=== PATIENT | female | born 1935 | race Caucasian/White ===

== ENCOUNTER 2016-06-06 22:52 | Inpatient (IN) | payer OTHER ==
--- NOTE | ~2016-06-06 | HP ---
History And Physical [id number] [place]. [address] NAME: NORMAN LOW : 37 STATUS : ADM IN PAT#: [id number] AGE: 80 ADM/REG DATE : 06/07/16 MR#: [id number] REPORT SERV DATE: 06/07/16 DICTATED BY: KASSANDRA BOWEN DATE: 06/07/16 REPORT STATUS : Draft TRANSCRIBED BY: MODL DATE: 06/07/16 DATE OF ADMISSION: 06/07/2016 CHIEF COMPLAINT: Chest pain. HPI: A 80-year-old woman followed by Dr. Raygoza and known to me from prior care, has unspecified PCI in 1993 and 2-vessel CABG in approximately that time frame, 01/08 obtuse marginal vessel 3.0 x 18 Cypher stent, and 08/16 catheterization demonstrating occluded LAD with patent ASHLEIGH graft to diagonal and patent EISENBERG graft to LAD, patent circumflex stent into first obtuse marginal vessel with distal edge 30% to 40% stenosis and occluded distal circumflex. 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 The patient's cardiovascular history is further remarkable for hypercholesteremia, hypertension, hypothyroidism, and pulmonary hypertension. For the last several weeks, the patient has had episodic, epigastric, and retrosternal chest pain which she says "builds." The pain radiates to shoulders and was associated with shortness of breath but not nausea, vomiting or diaphoresis. Yesterday evening, she had a particularly severe episode which prompted presentation to the [facility] Emergency Room. EKG did not demonstrate injury current but troponin-I was minimally elevated. She has been treated in routine fashion for acute coronary syndrome and has been pain-free since presentation. PAST MEDICAL HISTORY: 1. CAD-surgical and percutaneous revascularizations as defined above. 2. Hypercholesteremia-not treated. 3. Hypertension-not treated. 4. Hypothyroidism noted. 5. Pulmonary hypertension-last echo 11/16 with normal pulmonary artery pressures. HOME MEDICATIONS: Aspirin 81 mg daily, levothyroxine 25 mcg daily, multivitamins, tocopherol, and cyanocobalamin. SOCIAL HISTORY: The patient is not . She does not smoke. She does not drink alcohol. FAMILY HISTORY: Noncontributory. REVIEW OF SYSTEMS: Unremarkable. PHYSICAL EXAMINATION: GENERAL: No acute distress. VITAL SIGNS: 140/82, respirations 14, temperature 96.4, pulse 84 and regular. NECK: No JVD. No carotid bruits. History And Physical [address] [place]. [address] NAME: NORMAN LOW : 37 STATUS : ADM IN PAT#: [id number] AGE: 80 ADM/REG DATE : 06/07/16 MR#: [id number] REPORT SERV DATE: 06/07/16 DICTATED BY: KASSANDRA BOWEN DATE: 06/07/16 REPORT STATUS : Draft TRANSCRIBED BY: MODL DATE: 06/07/16 LUNGS: Clear to auscultation and percussion. CARDIAC: I/ systolic murmur, no diastolic murmur. ABDOMEN: Benign. EXTREMITIES: Warm without edema. LABORATORY DATA: BUN and creatinine 20 and 0.81 yielding EGFR 81. White blood cell count 4900, hematocrit 38.6%, platelet count 248,000. EKG, sinus rhythm at a rate of 86, normal axis and intervals, normal EKG. Troponin-I 0.15. ASSESSMENT AND PLAN: 1. Chest pain-known coronary artery disease and symptoms compatible with angina. I have started aspirin and Brilinta load in continuation. Started IV heparin per protocol. Obtain myocardial perfusion scan today with borderline troponin. 2. Coronary artery disease-status post CABG and PCI as defined above. 3. Hypercholesteremia-not treated. Starting Lipitor 40 mg daily for plaque stabilization. 4. Hypertension-borderline. Continue current therapy. /MODL Kassandra Bowen M.D. / [id number] CC: Kristy Ramos M.D.
[~2016-06-06 22:52] MED LIST: ALTA2.5 PO; ASAB PO; BRILINTA; BRILINTA90 MG PO; CALCIUM PO; COD LIVER PO; CRESTOR40 MG PO; EFFEXOR XR150 MG PO; EFFEXOR50 MG PO; EYE VITAMIN PO; FOLIC PO; KLONO1 PO; L-LYSINE1000 M1 OR; LEVOTHYROXIN112 MCG PO; LIPITOR80 MG PO; LOP25 PO; LORT7 PO; LORTAB10 PO; MEGA MULTI OR; MULTIPLE VIT PO; NORCO1 TA2 PO; SYN112 PO; VITAMIN B PO; VITAMIN C100 MG PO; VITAMIN D PO; ZETIA PO; [UNRECOGNIZED DRUG - OTHER]; [UNRECOGNIZED DRUG - OTHER]
[2016-06-06 23:21] LABS: BASOPHILS 0.6 %; BASOPHILS ABSOLUTE 0.03 10/3/uL (0.0-0.16); EOSINOPHILS 3.1 %; EOSINOPHILS ABSOLUTE 0.15 10/3/uL (0.0-0.53); HEMATOCRIT 38.6 % (36.0-48.0); HEMOGLOBIN 13.1 g/dL (12.0-16.0); IMMATURE GRANULOCYTES 0.2 %; IMMATURE GRANULOCYTES ABSOLUTE 0.01 10/3/uL (0.0-0.11); LYMPHOCYTES 44.9 %; MEAN CORPUS HGB CONC 33.9 g/dL (32.0-36.0); MEAN CORPUSCULAR VOLUME 94.1 fL (80-100); MEAN PLATELET VOLUME 10.3 fL (9.2-13.0); MONOCYTES 9.2 %; MONOCYTES ABSOLUTE 0.45 10/3/uL (0.21-1.20); NEUTROPHILS ABSOLUTE 2.06 10/3/uL (2.02-8.40); PLATELET COUNT 248 10/3/uL (150-400); RBC DISTRIBUTION WIDTH 12.4 % (12.0-16.0); WHITE BLOOD CELLS 4.9 10/3/uL (4.5-10.5)
[2016-06-06 23:22] LABS: MANUAL DIFF NO %
[2016-06-06 23:31] LABS: INTERNATIONAL NORMAL RATI 1.1 UNITS (-); PARTIAL THROMBO TIME 28.7 SEC (22.5-37.2); PROTIME (NOT ORD) 13.8 SEC (12.0-14.5)
[2016-06-06 23:39] LABS: CALCIUM, SERUM 8.6 MG/DL (8.5-10.4); CHLORIDE, SERUM 108 MMOL/L (96-112); CO2 (CARBON DIOXIDE) 27 MMOL/L (24-34); CREATININE 0.81 MG/DL (0.55-1.02); GFR AFRICAN AMERICAN 81 ML/MIN (>=60); GFR NON AFRICAN AMERICAN 70 ML/MIN (>=60); GLUCOSE, SERUM 107 MG/DL (60-99); SODIUM, SERUM 142 MMOL/L (135-148)
[2016-06-06 23:40] LABS: BUN (BLOOD UREA NITROGEN) 20 MG/DL (6-23)
[2016-06-06 23:41] LABS: CHEST PAIN PROFILE TAT 0 Hrs 24 Mins; TROPONIN I 0.15 NG/ML (<0.05)
[2016-06-07] MEDS ORDERED: MULTIVIT/MIN PO (00:15)
[2016-06-07] MEDS ORDERED: CYANO1000T PO (00:15)
[2016-06-07] MEDS ORDERED: ASAB PO (00:15)
[2016-06-07] MEDS ORDERED: VITE1000 PO (00:15)
[2016-06-07] MEDS ORDERED: SYN125 PO (00:15)
[2016-06-08 06:36] LABS: BASOPHILS 0.6 %; BASOPHILS ABSOLUTE 0.03 10/3/uL (0.0-0.16); EOSINOPHILS 5.7 %; EOSINOPHILS ABSOLUTE 0.27 10/3/uL (0.0-0.53); HEMATOCRIT 36.9 % (36.0-48.0); HEMOGLOBIN 12.7 g/dL (12.0-16.0); IMMATURE GRANULOCYTES 0.2 %; IMMATURE GRANULOCYTES ABSOLUTE 0.01 10/3/uL (0.0-0.11); LYMPHOCYTES 37.1 %; LYMPHOCYTES ABSOLUTE 1.75 10/3/uL (0.67-4.30); MEAN CORPUS HGB CONC 34.4 g/dL (32.0-36.0); MEAN CORPUSCULAR HEMOGLOB 32.7 pg (26.0-34.0); MEAN CORPUSCULAR VOLUME 95.1 fL (80-100); MEAN PLATELET VOLUME 9.8 fL (9.2-13.0); MONOCYTES 8.7 %; MONOCYTES ABSOLUTE 0.41 10/3/uL (0.21-1.20); NEUTROPHILS 47.7 %; NEUTROPHILS ABSOLUTE 2.25 10/3/uL (2.02-8.40); PLATELET COUNT 223 10/3/uL (150-400); RBC DISTRIBUTION WIDTH 12.4 % (12.0-16.0); RED CELL COUNT 3.88 10/6/uL (4.0-5.6); WHITE BLOOD CELLS 4.7 10/3/uL (4.5-10.5)
[2016-06-08 06:37] LABS: MANUAL DIFF NO %
[2016-06-08 06:53] LABS: CHOL/HDL RATIO(NOT ORDER) 3.2 (0-5)
[2016-06-08] MEDS ORDERED: PRIN10 PO (12:56)
[2016-06-08] MEDS ORDERED: LIPITOR10 PO (12:56)
[2016-08-03] MEDS ORDERED: PAXIL40 MG PO (06:42)
[2016-08-03] MEDS ORDERED: *UNABLE1 (06:43)
== END 2016-06-08 14:01 | disposition home or self-care (01) | DRG 303 ==
LOC: ER 22:52 → 5NO 06-07 00:53
PROVIDERS: Emergency Medicine; Specialist
DX: I25.119 Atherosclerotic heart disease of native coronary artery with unspecified angina pectoris (principal); I10 Essential (primary) hypertension; Z95.1 Presence of aortocoronary bypass graft; E03.9 Hypothyroidism, unspecified; Z95.5 Presence of coronary angioplasty implant and graft; Z79.82 Long term (current) use of aspirin
CPT/HCPCS: 71010; 78452; 80048; 80061; 83735; 84460; 84484; 85025; 85610; 85730; 93005; 93017; 99285; A9270-GY; A9502; J2785

== ENCOUNTER 2016-06-13 10:42 | Inpatient (IN) | payer OTHER ==
--- NOTE | ~2016-06-13 | OP ---
Record Of Operation [facility] [address] [place]. [address] NAME: NORMAN LOW : 37 STATUS : ADM IN PAT#: [id number] AGE: 80 ADM/REG DATE : 06/13/16 MR#: [id number] REPORT SERV DATE: 06/13/16 DICTATED BY: KASSANDRA BOWEN DATE: 06/13/16 REPORT STATUS : Draft TRANSCRIBED BY: MODL DATE: 06/13/16 DATE OF PROCEDURE: 06/13/2016 PROCEDURE: Emergent left heart catheterization, coronary angiography, right internal mammary artery graft angiography, left internal mammary artery graft angiography, balloon angioplasty followed by deployment of 3.5 x 16 Synergy stent in mid right coronary artery, nominally attempted angioplasty of occluded circumflex artery (in-stent). INDICATIONS: STEMI. DIRECTOR OF REGIONAL SALES: Kassandra Bowen M.D., [facility] [place], [facility]. PROCEDURE NOTE: The patient brought emergently to cardiac catheterization laboratory. Routine sterile prep and drape performed. Monitored sedation administered. 2% Xylocaine with epinephrine infiltrated to right groin. A 6-Serbian sheath to right femoral artery following anterior wall puncture. A 6-Serbian JR4 diagnostic catheter provided adequate engagement of right coronary artery with angiography of this vessel performed, demonstrating critical mid right vessel lesion. JR4 catheter redirected into left subclavian artery and engaged ostium of left internal mammary artery graft with angiography of this vessel performed. JR4 catheter redirected into right subclavian artery and sprayed the ostium of the right internal mammary artery graft with angiography of this vessel performed. Catheter exchanged for 6-Serbian JL-4 diagnostic catheter, which engaged the ostium of left main coronary artery adequately and left coronary aortography performed. Having identified critical stenosis in the mid right coronary artery, which jeopardized collateral filling to the circumflex territory, the decision to perform angioplasty was made. Heparin had been administered prior to arriving in the catheterization laboratory. An ACT was confirmed in the vicinity of 190 seconds during the procedure. Aspirin and Brilinta had been administered. A 6-Serbian JR4 guiding catheter provided adequate engagement of right coronary artery. Exchange length Maimai soft wire advanced through 2.5 x 15 Emerge balloon catheter. Guidewire through mid right coronary lesion without difficulty. Balloon catheter delivered to lesion without difficulty. They were inflated to 6 atmospheres pressure momentarily. Brisk antegrade flow observed. Balloon exchanged for 3.5 x 16 Synergy stent bearing balloon, which was delivered to lesion without difficulty and stent deployed at 10 atmospheres pressure. Optimal angiographic result observed with collateral filling of the circumflex territory observed. Catheter exchanged for 6-Serbian JL4 guiding catheter, which provided adequate engagement of left main coronary artery. Exchange length Asahi soft through the previously used 2.5 x 15 Emerge balloon catheter. Guidewire could not traverse the chronic total occlusion in-stent in the first obtuse marginal vessel. Angioplasty system withdrawn. 6-Serbian JR4 angled pigtail catheter prolapsed across the aortic valve without difficulty. Left ventricular pressures recorded and pullback to ascending aorta performed under pressure recording. All catheters were removed. Right common femoral arterial sheath side port angiography performed followed by ProGlide closure of common femoral puncture site with adjunctive 10 minutes of manual pressure in Record Of Operation [address] [place]. [address] NAME: NORMAN LOW : 37 STATUS : ADM IN PAT#: [id number] AGE: 80 ADM/REG DATE : 06/13/16 MR#: [id number] REPORT SERV DATE: 06/13/16 DICTATED BY: KASSANDRA BOWEN DATE: 06/13/16 REPORT STATUS : Draft TRANSCRIBED BY: MODL DATE: 06/13/16 catheterization laboratory. The patient to CCU in guarded condition, without immediate complication. TOTAL CONTRAST ADMINISTERED: 140 mL Isovue-370. TOTAL X-RAY: 471 milligray. HEMODYNAMICS: Central aortic pressure 105/50 mmHg and left ventricular pressure 105/25 mmHg. CORONARIES: 1. Right coronary artery: Large caliber, angiographically dominant vessel with mid vessel narrowing of 90%. This vessel terminates as posterior descending and posterolateral arteries. Collateral filling to obtuse marginal vessels identified after revascularization. 2. EISENBERG to LAD: Patent throughout its course with antegrade filling of a small caliber LAD. 3. ASHLEIGH to diagonal vessel: Patent throughout its course with antegrade filling of a diagonal vessel only. 4. Left main coronary artery: Medium caliber vessel without stenosis. 5. LAD: Occluded at its origin. 6. Circumflex: Angiographically nondominant vessel with antegrade filling of a small ramus intermedius vessel. First obtuse marginal vessel is chronically occluded (in- stent) with minimal antegrade flow. Collateral filling of the circumflex territory from right coronary artery identified. FINAL IMPRESSION: 1. Mildly elevated left ventricular end-diastolic pressure. 2. Occluded mid LAD with patent EISENBERG graft to LAD. 3. Occluded diagonal vessel with patent ASHLEIGH graft to diagonal vessel. 4. Chronic total occlusion of the first obtuse marginal vessel in-stent with collateral filling from right coronary artery to obtuse marginal vessel. 5. Large dominant right coronary artery with 90% mid right coronary artery narrowing, treated with 3.5 x Synergy Everolimus-eluting stent with reduction in luminal narrowing to zero percent. /MODL Kassandra Bowen M.D. / [id number] CC: Kristy Ramos M.D.
--- NOTE | ~2016-06-13 | HP ---
History And Physical [address] [place]. [address] NAME: NORMAN LOW : 37 STATUS : ADM IN PAT#: [id number] AGE: 80 ADM/REG DATE : 06/13/16 MR#: [id number] REPORT SERV DATE: 06/13/16 DICTATED BY: KASSANDRA BOWEN DATE: 06/13/16 REPORT STATUS : Draft TRANSCRIBED BY: GRANT DATE: 06/13/16 DATE OF ADMISSION: 06/13/2016 CHIEF COMPLAINT: Chest pain with STEMI changes on EKG. HISTORY OF PRESENT ILLNESS: A 80-year-old woman, followed by Dr. Debbie Raygoza, known to me from prior care, has history of two-vessel CABG in approximately [address] Goldstein consisting of ASHLEIGH to diagonal vessel and EISENBERG to LAD, 2003 angioplasty with deployment of 3.[address] Marin and cardiac catheterization last performed 09/17 demonstrating patent grafts and no more than 30% narrowing in the circumflex territory stent. The patient was admitted to [facility] a week ago with nonatypical chest pain with normal cardiac markers and no EKG changes. Myocardial perfusion scan was performed at [facility], which was completely normal. She was discharged. This morning, at approximately 0900 hours, she awoke from sleep with retrosternal chest pain radiating to her left shoulder. She drove herself to [facility] Emergency Room where EKG demonstrated acute ST-segment changes with anterior septal ST elevation and lateral ST depression. Dr. Ascencio activated STEMI and I was summoned. The patient has been received in transfer to [facility]. PAST MEDICAL HISTORY: 1. CAD-surgical and percutaneous revascularization as above. 2. Hypertension-variably compliant with therapy. 3. Hypothyroidism-repleted. 4. Hypercholesteremia-variably treated. 5. Mild pulmonary hypertension. HOME MEDICATIONS: Aspirin 81 mg daily, levothyroxine 25 mcg daily, atorvastatin unknown dose, cyanocobalamin, and tocopherol. SOCIAL HISTORY: The patient is . She is estranged from her children. She does not smoke. She does not drink alcohol. FAMILY HISTORY: Noncontributory. REVIEW OF SYSTEMS: Unremarkable. 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 VITAL SIGNS: Blood pressure 110/70, heart rate 80 to 90. Right and left femoral +2. CARDIAC: I/ systolic murmur. EXTREMITIES: Right and left dorsalis pedis pulses are palpable. History And Physical [address] [place]. [address] NAME: NORMAN LOW : 37 STATUS : ADM IN PAT#: [id number] AGE: 80 ADM/REG DATE : 06/13/16 MR#: [id number] REPORT SERV DATE: 06/13/16 DICTATED BY: KASSANDRA BOWEN DATE: 06/13/16 REPORT STATUS : Draft TRANSCRIBED BY: MODL DATE: 06/13/16 LABORATORY DATA: EKG; sinus rhythm at a rate of 97, downsloping ST depression of 1-2 mm in leads 1 and 2, up to [address]-elevation in V1 and V2, 1-[address]-depression in V4 through V6. ASSESSMENT AND PLAN: 1. ST-elevation myocardial infarction-emergent catheterization and possible PCI indicated. Aspirin and Brilinta administered at [facility] and heparin initiated. 2. Known coronary artery disease. 3. Hypercholesterolemia-variably treated. 4. Hypertension-treated. 5. Hypothyroidism-noted. /MODL Kassandra Bowen M.D. / [id number] CC: Kristy Ramos M.D.
[~2016-06-13 10:42] MED LIST changes: +CYANO1000T PO; +LIPITOR10 PO; +MULTIVIT/MIN PO; +PRIN10 PO; +SYN125 PO; +VITE1000 PO
[2016-06-13] MEDS ORDERED: MULTIVIT/MIN PO (13:37)
[2016-06-13] MEDS ORDERED: VITC500 PO (13:37)
[2016-06-13] MEDS ORDERED: TUMS E-X750 M2 PO (13:40)
[2016-06-13 15:33] LABS: CK-MB 26.2 NG/ML
[2016-06-13 15:34] LABS: TROPONIN I 5.64 NG/ML (<0.05)
[2016-06-14 07:24] LABS: BASOPHILS 0.4 %; BASOPHILS ABSOLUTE 0.02 10/3/uL (0.0-0.16); EOSINOPHILS 5.1 %; EOSINOPHILS ABSOLUTE 0.23 10/3/uL (0.0-0.53); HEMOGLOBIN 11.6 g/dL (12.0-16.0); IMMATURE GRANULOCYTES 0.2 %; IMMATURE GRANULOCYTES ABSOLUTE 0.01 10/3/uL (0.0-0.11); LYMPHOCYTES 29.8 %; LYMPHOCYTES ABSOLUTE 1.34 10/3/uL (0.67-4.30); MEAN CORPUS HGB CONC 33.6 g/dL (32.0-36.0); MEAN CORPUSCULAR HEMOGLOB 32.3 pg (26.0-34.0); MEAN CORPUSCULAR VOLUME 96.1 fL (80-100); MEAN PLATELET VOLUME 10.4 fL (9.2-13.0); MONOCYTES 7.8 %; MONOCYTES ABSOLUTE 0.35 10/3/uL (0.21-1.20); NEUTROPHILS 56.7 %; NEUTROPHILS ABSOLUTE 2.55 10/3/uL (2.02-8.40); PLATELET COUNT 195 10/3/uL (150-400); RBC DISTRIBUTION WIDTH 12.5 % (12.0-16.0); RED CELL COUNT 3.59 10/6/uL (4.0-5.6); WHITE BLOOD CELLS 4.5 10/3/uL (4.5-10.5)
[2016-06-14 07:27] LABS: HEMATOCRIT 34.5 % (36.0-48.0); MANUAL DIFF NO %
[2016-06-14 07:41] LABS: CHLORIDE, SERUM 113 MMOL/L (96-112); CHOLESTEROL 158 MG/DL (< 200); CK-MB 11.5 NG/ML; CO2 (CARBON DIOXIDE) 24 MMOL/L (24-34); CREATININE 0.67 MG/DL (0.55-1.02); GFR AFRICAN AMERICAN 98 ML/MIN (>=60); GFR NON AFRICAN AMERICAN 84 ML/MIN (>=60); POTASSIUM, SERUM 3.9 MMOL/L (3.5-5.3); SODIUM, SERUM 144 MMOL/L (135-148)
[2016-06-14 07:42] LABS: BUN (BLOOD UREA NITROGEN) 13 MG/DL (6-23); CALCIUM, SERUM 7.9 MG/DL (8.5-10.4); CHOL/HDL RATIO(NOT ORDER) 3.4 (0-5); CKMB INDEX (NOT ORD) 4.3; CPK 266 U/L (0-200); GLUCOSE, SERUM 98 MG/DL (60-99); HDL CHOLESTEROL 47 MG/DL (> 49); LDL CHOLESTEROL 89 MG/DL (< 130); NON-HDL CHOLESTEROL 111 MG/DL (< 160); TRIGLYCERIDE 113 MG/DL (< 150)
[2016-06-14 07:43] LABS: TROPONIN I 5.32 NG/ML (<0.05)
[2016-06-15] MEDS ORDERED: TOPXL50 PO (12:32)
[2016-06-15] MEDS ORDERED: BRILINTA90 MG PO (12:32)
[2016-08-03] MEDS ORDERED: PAXIL40 MG PO (06:42)
[2016-08-03] MEDS ORDERED: *UNABLE1 (06:43)
== END 2016-06-15 15:33 | disposition home or self-care (01) | DRG 247 ==
LOC: SSU2 10:42 → CCU 12:09 → 5NO 06-14 14:03
PROVIDERS: Internal Medicine Cardiovascular Disease
PROC: 4A023N7 Measurement of Cardiac Sampling and Pressure, Left Heart, Percutaneous Approach (ICD-10-PCS; principal; 2016-06-13)
PROC: 027034Z Dilation of Coronary Artery, One Artery with Drug-eluting Intraluminal Device, Percutaneous Approach (ICD-10-PCS; 2016-06-13)
PROC: B2111ZZ Fluoroscopy of Multiple Coronary Arteries using Low Osmolar Contrast (ICD-10-PCS; 2016-06-13)
PROC: B2151ZZ Fluoroscopy of Left Heart using Low Osmolar Contrast (ICD-10-PCS; 2016-06-13)
DX: I21.09 ST elevation (STEMI) myocardial infarction involving other coronary artery of anterior wall (principal); I27.2 Other secondary pulmonary hypertension; I25.10 Atherosclerotic heart disease of native coronary artery without angina pectoris; Z95.1 Presence of aortocoronary bypass graft; I10 Essential (primary) hypertension; E78.5 Hyperlipidemia, unspecified; Z79.82 Long term (current) use of aspirin; E03.9 Hypothyroidism, unspecified; F32.9 Major depressive disorder, single episode, unspecified; F41.9 Anxiety disorder, unspecified
CPT/HCPCS: 71010; 80048; 80061; 82550; 82553; 82962; 83735; 84484; 85025; 85347; 85610; 85730; 87641; 93005; 93306; 93459; 99152; 99153; 99285; A9270-GY; C1725; C1760; C1769; C1874; C1887; C1894; C9606; J0583; J0690; J2250; J2405; J3010; Q9967